=== PATIENT | female | born 1945 | race Two or more races ===

== ENCOUNTER 2019-06-27 07:55 | Emergency (ER) | payer OTHER ==
[~2019-06-27] VITALS: Ht 152.4 cm; Wt 73.0 kg
[~2019-06-27 07:55] MED LIST: FURO40SO5 PO; LISI-608 PO; METO25TA20 PO
[2019-06-27 08:05] VITALS: BP 216/111
--- NOTE | 2019-06-27 09:22 | NUR ---
PATIENT SEEN AND EXAMIEND BY DR HOLT. APPLIED SLING ON RIGHT FOREARM/WRIST, PROVIDED PATIENT WITH SLING. DISCHARGE INSTRUCTIONS AND EDUCATION PROVIDED. CLEARED TO DC BY DR HOLT. PATIENT INSTRUCTED TO HAVE FOLLOW-UP APPOINTMENT WITH PCP AND VERBALIZED UNDERSTANDING. DISCHARGE INSTRUCTIONS, RADIOLOGY RESULT, WRITTEN PRESCRIPTIONS GIVEN TO PATIENT. LEFT UNIT AMBULATORY IN STABLE CONDITION. NO ACUTE DISTRESS. NO NEW SKIN BREAKDOWN. MD AWARE
== END 2019-06-27 09:22 | disposition home or self-care (01) ==
LOC: ER 07:55
DX: S63.591A Other specified sprain of right wrist, initial encounter (principal); I10 Essential (primary) hypertension; E11.9 Type 2 diabetes mellitus without complications; Z90.49 Acquired absence of other specified parts of digestive tract; W18.39XA Other fall on same level, initial encounter; Y93.89 Activity, other specified; Y92.89 Other specified places as the place of occurrence of the external cause; Y99.8 Other external cause status
CPT/HCPCS: 73110

== ENCOUNTER 2020-08-24 19:37 | Emergency (ER) | payer OTHER ==
[~2020-08-24] VITALS: Ht 162.6 cm; Wt 70.3 kg
[2020-08-24 20:25] VITALS: BP 201/90
[2020-08-24] MEDS ORDERED: IBUPROFEN 600 MG TABLET ONE (20:52)
[2020-08-24] MEDS: IBUPROFEN 600 MG TABLET PO ONE (21:00)
--- NOTE | 2020-08-24 21:06 | NUR ---
RADIOLOGY AT BEDSIDE FOR XR
--- NOTE | 2020-08-24 21:43 | NUR ---
FAITH ANDERSON [phone]
--- NOTE | 2020-08-24 21:46 | NUR ---
CALLED JUSTIN TWICE, BUT BOTH WENT STRAIGHT TO VOICEMAIL, LEFT A VOICEMAIL.
--- NOTE | 2020-08-24 22:07 | NUR ---
Patient discharged to home in stable condition. Written and verbal after care instructions given. Patient verbalizes understanding of instruction.
--- NOTE | 2020-08-24 22:07 | NUR ---
RIGHT SHOULDER SLING IMPLEMENTED.
--- NOTE | 2020-08-24 22:15 | NUR ---
CALLED KAREN Sin, ANOTHER GRANDSON, . HE IS COMING TO COMMAND CENTER OFFICER THE PATIENT.
== END 2020-08-24 22:17 | disposition home or self-care (01) ==
LOC: ER 19:47
DX: S40.011A Contusion of right shoulder, initial encounter (principal); I10 Essential (primary) hypertension; E11.9 Type 2 diabetes mellitus without complications; Z90.49 Acquired absence of other specified parts of digestive tract; Z79.899 Other long term (current) drug therapy; W18.39XA Other fall on same level, initial encounter; Y93.01 Activity, walking, marching and hiking; Y92.89 Other specified places as the place of occurrence of the external cause; Y99.8 Other external cause status
CPT/HCPCS: 73030-TC

== ENCOUNTER 2021-10-18 13:19 | Emergency (ER) | payer OTHER ==
[~2021-10-18] VITALS: Ht 157.5 cm; Wt 655.0 kg
[~2021-10-18 13:19] MED LIST changes: -LISI-608 PO; +LISI5TAB24 PO
--- NOTE | 2021-10-18 13:19 | NUR ---
[id number] HOME, L SIDE HEAD LACERATION S/P MISSED A STEP GOING DOWN STAIRS. PT IS A&OX4 AND STABLE. PT SENT TO ROOM 2 WILL CONTINUE TO MONITOR.
--- NOTE | 2021-10-18 13:22 | NUR ---
DR MARIE AT BEDSIDE
[2021-10-18] MEDS ORDERED: LIDOCAINE /MPF 1% VIAL 5 ML VIAL ONE (13:35)
[2021-10-18] MEDS ORDERED: TDAP [DIPH/PERTUSSIS/TET] 0.5 ML VIAL IM ONE ×2 (14:00→14:32)
[2021-10-18] MEDS ORDERED: LIDOCAINE 1% INJ 50 ML MDV IJ ONE ×2 (14:00→14:31)
[2021-10-18] MEDS ORDERED: BACITRACIN ZINC OINT PACKET 1 EA PACKET TP ONE ×2 (14:00→14:32)
[2021-10-18] MEDS ORDERED: LIDOCAINE HCL/MPF 1% 30 ML VIAL IJ ONE (14:26)
[2021-10-18] MEDS ORDERED: HYDROCODONE/APAP 5/325MG TABLET ONE (14:46)
[2021-10-18] MEDS ORDERED: HYDROCODONE/APAP 5/325MG TABLET PO ONE (15:00)
[2021-10-18] MEDS ORDERED: ACET-2605 PO (15:21)
[2021-10-18] MEDS ORDERED: CEPH500T PO (15:21)
--- NOTE | 2021-10-18 15:35 | NUR ---
Patient discharged to home in stable condition. Written and verbal after care instructions given. Patient verbalizes understanding of instruction.
[2021-10-18 15:52] VITALS: BP 168/94
== END 2021-10-18 15:35 | disposition home or self-care (01) ==
LOC: ER 14:06
DX: S01.01XA Laceration without foreign body of scalp, initial encounter (principal); I10 Essential (primary) hypertension; E11.9 Type 2 diabetes mellitus without complications; Z90.49 Acquired absence of other specified parts of digestive tract; Z79.899 Other long term (current) drug therapy; W10.8XXA Fall (on) (from) other stairs and steps, initial encounter; Y93.01 Activity, walking, marching and hiking; Y92.89 Other specified places as the place of occurrence of the external cause; Y99.8 Other external cause status
CPT/HCPCS: 12004; 70450; 90471; 90715; 99284; A6403 ×2; J3490 ×3

== ENCOUNTER 2021-10-20 15:32 | Inpatient (IN) | payer OTHER ==
[~2021-10-20] VITALS: Ht 157.5 cm; Wt 60.8 kg
[~2021-10-20 15:32] MED LIST changes: +ACET-2605 PO; +CEPH500T PO
--- NOTE | 2021-10-20 16:11 | NUR ---
THE PATIENT PRESENTS TO ED FOR WOUND CHECK S/P HEAD INJURY/ LAC REPAIR 2 DAYS AGO. DENIES PAIN. WILL CONTINUE TO MONITOR THE PATIENT.
--- NOTE | 2021-10-20 16:20 | NUR ---
DR MARIE AT THE BEDSIDE
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
--- NOTE | 2021-10-20 17:49 | NUR ---
JUSTIN ([facility]) [phone]
[2021-10-20 18:18] LABS: BASOPHILS % (AUTO) 0.3 % (0.0-2.0); EOSINOPHILS % (AUTO) 1.5 % (0.0-6.0); HEMATOCRIT 40 % (33-45); HEMOGLOBIN 13.3 g/dL (11.5-14.8); LYMPHOCYTES % (AUTO) 32.9 % (20.0-44.0); MEAN CORPUSCULAR HGB CONC 33 g/dl (31.0-36.0); MEAN CORPUSCULAR VOLUME 90 fL (82-100); MONOCYTES # (AUTO) 0.5 K/uL (0.1-1.30); MONOCYTES % (AUTO) 5.2 % (2.0-12.0); NEUTROPHILS # (AUTO) 5.4 K/uL (1.8-8.9); NEUTROPHILS % (AUTO) 60.1 % (43.0-81.0); PLATELET COUNT (AUTO) 167 K/uL (150-450); RED BLOOD CELL COUNT(AUTO) 4.49 MIL/uL (4.0-5.2)
[2021-10-20 18:24] LABS: CALCIUM, SERUM 9.1 mg/dL (8.5-10.1); CARBON DIOXIDE 28 mmol/L (21-32); CHLORIDE 106 mmol/L (98-107); CREATININE 0.9 mg/dL (0.6-1.3); GLUCOSE 113 mg/dL (74-106); SODIUM SERUM 142 mmol/L (136-145); UREA NITROGEN, BLOOD 21 mg/dL (7-18)
[2021-10-20 18:42] LABS: ALANINE AMINOTRANSFERASE 18 U/L (12-78); ALBUMIN 3.8 g/dL (3.4-5.0); ALKALINE PHOSPHATASE 95 U/L (46-116); ASPARTATE AMINOTRANSFERASE 16 U/L (15-37); BILIRUBIN,DIRECT 0.1 mg/dL (0.0-0.2); BILIRUBIN,TOTAL 0.5 mg/dL (0.2-1.0); TOTAL PROTEIN, SERUM 8.1 g/dL (6.4-8.2)
[2021-10-20 18:43] LABS: ACETAMINOPHEN 0 ug/ml (10-30); ALCOHOL, BLOOD < 3 mg/dL (0-0)
[2021-10-20] MEDS ORDERED: CEPHALEXIN MONOHYDRATE 500 MG CAPSULE PO ONE ×2 (19:00→19:14)
--- NOTE | 2021-10-20 19:00 | NUR ---
CALLED TO FOLLOW UP ON CASE OF [employer] DISPATCH. NO UNIT ASSIGNED. WILL SEND A UNIT.
--- NOTE | 2021-10-20 20:20 | NUR ---
[employer] AT BEDSIDE
--- NOTE | 2021-10-20 20:25 | NUR ---
JAK OFFICER TALKED TO WILTON OTT.
--- NOTE | 2021-10-20 20:27 | NUR ---
JAK MIRAMONTESHAYAKASHWINI. INCIDENT NUMBER [id number]
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
--- NOTE | 2021-10-21 08:11 | NUR ---
THE PATIENT IS RECEIVED IN ER BED #11. ALERT AND ORIENTED X3. DENIES PAIN. IN ROOM AIR AND DENIES SOB. RESPIRATION REGULAR AND UNLABORED. WILL CONTINUE TO MONITOR THE PATIENT.
--- NOTE | 2021-10-21 08:15 | NUR ---
THE PATIENT IS HAVING BREAKFAST. TOLERATES PROVIDED MEAL WELL. WILL CONTINUE TO MONITOR THE PATIENT.
--- NOTE | 2021-10-21 09:21 | NUR ---
SHIPPER/RECEIVER DENTAL CLAIMS PROCESSOR AT THE BEDSIDE
--- NOTE | 2021-10-21 09:40 | NUR ---
COVID SWAB DONE AND SENT TO LAB
[2021-10-21] MEDS ORDERED: LISI-768 PO (09:41)
[2021-10-21] MEDS ORDERED: METO25TA20 PO (09:41)
--- NOTE | 2021-10-21 10:12 | NUR ---
MENDEL [facility] TEL [phone]
--- NOTE | 2021-10-21 10:39 | NUR ---
SANDY APS Report: SANDY filed for APS report through [facility] for self-neglect. (Intake ID [id number])
--- NOTE | 2021-10-21 11:12 | NUR ---
CALLED FOR GPS BED.
[2021-10-21] MEDS ORDERED: ACETAMINOPHEN ES 500 MG TABLET PO PRN (13:00)
--- NOTE | 2021-10-21 13:50 | NUR ---
REPORT GIVEN TO NURSE BRUNNER
[2021-10-21] MEDS ORDERED: METOPROLOL TARTRATE 25 MG TABLET ONE ×2 (14:01→14:05)
[2021-10-21] MEDS: METOPROLOL TARTRATE 25 MG TABLET PO SCH ×2 (14:10→22:00)
--- NOTE | 2021-10-21 14:28 | NUR ---
THE PATIENT IS TRANSFERED TO [facility] IN STABLE CONDITION AND PER POLICY.
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
[2021-10-21] MEDS ORDERED: MAG HYDROX/AL HYDROX/SIMETH 30 ML UDC PO PRN (15:00)
[2021-10-21] MEDS ORDERED: BLOOD SUGAR DIAGNOSTIC 1 EACH STRIP IN ONE (15:00)
[2021-10-21] MEDS ORDERED: ACETAMINOPHEN 325 MG TABLET PO PRN (15:00)
[2021-10-21] MEDS ORDERED: MAGNESIUM HYDROXIDE 30 ML UDC PO PRN (15:00)
[2021-10-21] MEDS ORDERED: LORAZEPAM 0.5 MG TABLET PO PRN (15:00)
[2021-10-21] MEDS ORDERED: TEMAZEPAM 7.5 MG CAPSULE PO PRN (15:00)
[2021-10-21] MEDS: LISINOPRIL (5MG) 5 MG TABLET PO SCH (15:04)
--- NOTE | 2021-10-21 15:14 | NUR ---
SANDY Initial Discharge Note: Patient currently resides at [address] [place] [address]; ([phone]). Patient's son Juan Carlos lives in the same building. Patient would want to return back home upon dc. SANDY will work with the MD, Treatment team and family to coordinate appropriate discharge.
[2021-10-21 16:00] VITALS: BP 145/69
[2021-10-21 20:59] VITALS: BP 101/73
[2021-10-21 21:00] VITALS: BP 136/72
[2021-10-22 06:47] LABS: BASOPHILS % (AUTO) 0.7 % (0.0-2.0); EOSINOPHILS % (AUTO) 4.3 % (0.0-6.0); HEMATOCRIT 39 % (33-45); HEMOGLOBIN 12.8 g/dL (11.5-14.8); LYMPHOCYTES # (AUTO) 1.8 K/uL (0.8-4.8); LYMPHOCYTES % (AUTO) 27.6 % (20.0-44.0); MEAN CORPUSCULAR HGB CONC 33 g/dl (31.0-36.0); MEAN CORPUSCULAR VOLUME 90 fL (82-100); MONOCYTES # (AUTO) 0.5 K/uL (0.1-1.30); MONOCYTES % (AUTO) 7.8 % (2.0-12.0); NEUTROPHILS # (AUTO) 3.9 K/uL (1.8-8.9); NEUTROPHILS % (AUTO) 59.6 % (43.0-81.0); PLATELET COUNT (AUTO) 164 K/uL (150-450); RED BLOOD CELL COUNT(AUTO) 4.35 MIL/uL (4.0-5.2); WHITE BLOOD COUNT (AUTO) 6.5 K/uL (4.3-11.0)
[2021-10-22 07:10] LABS: CHOLESTEROL 167 mg/dL (<200); HDL CHOLESTEROL 63 mg/dL (40-60); LDL 89 mg/dL (0-99); TRIGLYCERIDES 69 mg/dL (30-150)
[2021-10-22 07:13] LABS: CALCIUM, SERUM 8.9 mg/dL (8.5-10.1); CREATININE 0.9 mg/dL (0.6-1.3)
[2021-10-22 08:00] VITALS: BP 175/94
[2021-10-22] MEDS: LISINOPRIL (5MG) 5 MG TABLET PO SCH (08:33)
[2021-10-22] MEDS: METOPROLOL TARTRATE 25 MG TABLET PO SCH ×2 (08:33→20:43)
--- NOTE | 2021-10-22 09:34 | NUR ---
WOUND CARE CONSULT: PT PRESENTS AMBULATORY AND CONTINENT WITH CLOSED LACERATION TO SCALP AND DISCOLORATION TO FACE, PRESENT ON ADMISSION. NO DRAINAGE NOTED FROM STAPLED SCALP LACERATION. WILL SEE PRN.
--- NOTE | 2021-10-22 11:01 | NUR ---
SANDY Family Contact: SW spoke with patient's son Juan Carlos ([phone]) and discussed treatment and discharge plan. He shared that pt lives with roommates. He shared that pt would go back home upon dc. He reported that he assumes that pt fell when walking the dog.
[2021-10-22 16:07] VITALS: BP 151/91
[2021-10-22 20:00] VITALS: BP 196/77
[2021-10-22 20:36] VITALS: BP 164/72
[2021-10-22 21:02] VITALS: BP 179/75
[2021-10-22] MEDS: risperiDONE 0.25 MG TABLET PO SCH (22:00)
[2021-10-23 08:00] VITALS: BP 178/80
--- NOTE | 2021-10-23 08:19 | NUR ---
UR Note: AUTHORIZATION# [id number] OBTAINED FROM VINNY COVINGTON AT [phone]. MENDEL PIT SUPERVISOR. GAVE VERBAL AUTH INITIALLY TO PIPER REMY AND HAS SPOKE TO [facility] NOTIFYING THEM OF ADMISSION. MENDEL WILL BE THE ONE FOLLOWING THIS CASE; SAME NUMBER LISTED ABOVE AND CLINICAL CAN BE FAXED TO [phone]. AUTH STAYS OPEN UNTIL PT IS DISCHARGED. PER INTAKE.
--- NOTE | 2021-10-23 08:25 | NUR ---
UR Note: AUTHORIZATION# [id number] SW faxed daily clinicals to [facility] ([phone]) (F:[phone]).
[2021-10-23] MEDS: LISINOPRIL (5MG) 5 MG TABLET PO SCH (08:38)
[2021-10-23] MEDS: METOPROLOL TARTRATE 25 MG TABLET PO SCH (08:38)
--- NOTE | 2021-10-23 08:46 | NUR ---
UR Note: AUTHORIZATION# [id number]. SANDY left a message to [facility] ([phone]) (F:[phone]) and stated that because of the holidays this caption writer will not be able to send clinicals 10/24-10/27. ASNDY will notify intake department.
[2021-10-23] MEDS: risperiDONE 0.25 MG TABLET PO SCH ×2 (09:32→21:16)
--- NOTE | 2021-10-23 13:39 | NUR ---
SANDY Coordination of Care: Patient will follow up with (Clothing Presser) Dr. Paulo Luciano located at [address] [place] [address]; ([phone]) on November 04 at 9AM.
[2021-10-23 16:00] VITALS: BP 169/75
[2021-10-23] MEDS: CARVEDILOL 12.5 MG TABLET PO SCH (16:22)
[2021-10-23 20:00] VITALS: BP 134/65
[2021-10-24 08:00] VITALS: BP 189/72
[2021-10-24] MEDS: CARVEDILOL 12.5 MG TABLET PO SCH ×2 (08:21→16:12)
[2021-10-24] MEDS: LISINOPRIL (20MG) 20 MG TABLET PO SCH (08:46)
[2021-10-24] MEDS ORDERED: LISINOPRIL (5MG) 5 MG TABLET PO SCH (09:00)
[2021-10-24 09:50] VITALS: BP 151/57
[2021-10-24] MEDS: risperiDONE 0.25 MG TABLET PO SCH (10:06)
[2021-10-24 16:00] VITALS: BP 150/70
[2021-10-24] MEDS: AMLODIPINE BESYLATE 5 MG TABLET PO SCH (16:12)
[2021-10-24] MEDS: risperiDONE 1 MG TABLET PO SCH (18:57)
[2021-10-24 19:56] VITALS: BP 139/65
[2021-10-25] MEDS: risperiDONE 1 MG TABLET PO SCH ×2 (06:14→17:34)
[2021-10-25 08:00] VITALS: BP 151/78
[2021-10-25] MEDS: AMLODIPINE BESYLATE 5 MG TABLET PO SCH ×2 (08:45→17:35)
[2021-10-25] MEDS: LISINOPRIL (20MG) 20 MG TABLET PO SCH (08:45)
[2021-10-25] MEDS: CARVEDILOL 12.5 MG TABLET PO SCH ×2 (08:45→17:35)
--- NOTE | 2021-10-25 12:33 | NUR ---
UR Note: AUTHORIZATION# [id number]. SANDY faxed clinicals to [facility] case filler ([phone]) ([phone]). SANDY faxed daily clinical.
[2021-10-25 16:00] VITALS: BP 158/66
[2021-10-25 20:21] VITALS: BP 133/71
[2021-10-25 22:30] VITALS: BP 128/73
[2021-10-25 22:40] VITALS: BP 126/75
[2021-10-26] MEDS: risperiDONE 1 MG TABLET PO SCH ×2 (06:09→18:12)
[2021-10-26 08:00] VITALS: BP_SYST 140; BP_SYST 163; BP_DIAS 66; BP_DIAS 76
[2021-10-26] MEDS: LISINOPRIL (20MG) 20 MG TABLET PO SCH (08:02)
[2021-10-26] MEDS: AMLODIPINE BESYLATE 5 MG TABLET PO SCH ×2 (08:02→16:14)
[2021-10-26] MEDS: CARVEDILOL 12.5 MG TABLET PO SCH ×2 (08:02→16:14)
[2021-10-26 09:30] VITALS: BP 125/53
[2021-10-26 16:00] VITALS: BP 140/66
--- NOTE | 2021-10-26 19:30 | NUR ---
GPS RN NOTE, RECEIVED PATIENT AWAKE AND IN BED, NO S/S OR COMPLAINTS OF PAIN AT THIS TIME. PATIENT IS DISPLAYING NO S/S OF APPARENT DISTRESS AT THIS TIME. PATIENT BREATHING IS UNLABORED WITH EQUAL RISE AND FALL OF THE CHEST. PATIENT IS ALERT AND ORIENTED X 2 ON ROOM AIR WITH A SPO2 95%. PATIENT IS COMPLIANT WITH MEDICATIONS, ANXIOUS AT TIMES, PARANOID, POLITE, COOPERATIVE, AND NEEDS REDIRECTION. PATIENT DENIES SUICIDAL AND HOMICIDAL IDEATIONS AT THIS TIME. PATIENT ASSISTED WITH TURNING AND REPOSITIONING Q2HR AND PRN FOR COMFORT AND CIRCULATION. PATIENT HAS NO NEEDS AT THIS TIME. PATIENT EDUCATED ON THE USE OF THE CALL GREEN. PATIENT BED SIDE RAILS UP X 2 FOR SAFETY. PATIENT BED IS LOCKED, LOW, WITH BED ALARM ON. WILL CONTINUE TO MONITOR THIS PATIENT Q15 MINUTES WITH THE HELP OF STAFF TO MAINTAIN SAFETY.
[2021-10-26 20:03] VITALS: BP 148/63
[2021-10-26 20:11] VITALS: BP 148/63
[2021-10-27] MEDS: risperiDONE 1 MG TABLET PO SCH ×2 (05:36→17:08)
[2021-10-27 08:00] VITALS: BP 148/65
[2021-10-27] MEDS: AMLODIPINE BESYLATE 5 MG TABLET PO SCH ×2 (08:12→17:06)
[2021-10-27] MEDS: LISINOPRIL (20MG) 20 MG TABLET PO SCH (08:13)
[2021-10-27] MEDS: CARVEDILOL 12.5 MG TABLET PO SCH ×2 (08:13→17:07)
[2021-10-27 16:00] VITALS: BP 144/60
--- NOTE | 2021-10-27 19:30 | NUR ---
GPS RN NOTE, RECEIVED PATIENT AWAKE AND IN BED, NO S/S OR COMPLAINTS OF PAIN AT THIS TIME. PATIENT IS DISPLAYING NO S/S OF APPARENT DISTRESS AT THIS TIME. PATIENT BREATHING IS UNLABORED WITH EQUAL RISE AND FALL OF THE CHEST. PATIENT IS ALERT AND ORIENTED X 2 ON ROOM AIR WITH A SPO2 98%. PATIENT IS COMPLIANT WITH MEDICATIONS, ANXIOUS AT TIMES, PARANOID, POLITE, COOPERATIVE, AND NEEDS REDIRECTION. PATIENT DENIES SUICIDAL AND HOMICIDAL IDEATIONS AT THIS TIME. PATIENT ASSISTED WITH TURNING AND REPOSITIONING Q2HR AND PRN FOR COMFORT AND CIRCULATION. PATIENT HAS NO NEEDS AT THIS TIME. PATIENT EDUCATED ON THE USE OF THE CALL GREEN. PATIENT BED SIDE RAILS UP X 2 FOR SAFETY. PATIENT BED IS LOCKED, LOW, WITH BED ALARM ON. WILL CONTINUE TO MONITOR THIS PATIENT Q15 MINUTES WITH THE HELP OF STAFF TO MAINTAIN SAFETY.
--- NOTE | 2021-10-27 19:51 | NUR ---
GPS RN NOTE, PATIENT REFUSED TO HAVE SKIN ASSESSMENT AND WEEKLY PHOTO'S TAKEN PER POLICY. OFFERED THREE TIMES AND STILL PATIENT REFUSED STATING, " NO I DID THAT WHEN I WAS ADMITTED I'M NOT DOING THAT AGAIN ". ECAUDATED PATIENT ABOUT HOSPITAL POLICY. WILL CONTINUE TO MONITOR THIS PATIENT WITH THE HELP OF STAFF.
[2021-10-27 19:55] VITALS: BP 155/75
[2021-10-28] MEDS: risperiDONE 1 MG TABLET PO SCH (05:34)
[2021-10-28 08:00] VITALS: BP 119/75
[2021-10-28] MEDS: CARVEDILOL 12.5 MG TABLET PO SCH ×2 (09:00→17:07)
--- NOTE | 2021-10-28 09:21 | NUR ---
UR Note: AUTHORIZATION# [id number]. SANDY faxed clinicals to [facility] transplant case manager ([phone]) (F:[phone]). SANDY faxed daily clinical.
[2021-10-28] MEDS: AMLODIPINE BESYLATE 5 MG TABLET PO SCH ×2 (10:24→17:03)
[2021-10-28] MEDS: LISINOPRIL (20MG) 20 MG TABLET PO SCH (10:24)
[2021-10-28 16:00] VITALS: BP 151/64
[2021-10-28] MEDS: risperiDONE 0.25 MG TABLET PO SCH (17:08)
[2021-10-28 19:48] VITALS: BP 102/58
[2021-10-29] MEDS: risperiDONE 0.25 MG TABLET PO SCH ×2 (04:17→17:44)
[2021-10-29 08:00] VITALS: BP 145/59
[2021-10-29] MEDS: CARVEDILOL 12.5 MG TABLET PO SCH ×2 (08:33→17:44)
[2021-10-29] MEDS: LISINOPRIL (20MG) 20 MG TABLET PO SCH (08:34)
[2021-10-29] MEDS: AMLODIPINE BESYLATE 5 MG TABLET PO SCH ×2 (08:34→17:44)
--- NOTE | 2021-10-29 09:15 | NUR ---
UR Note: AUTHORIZATION# [id number]. SANDY faxed clinicals to [facility] medical case worker ([phone]) (F:[phone]). SANDY faxed daily clinical.
--- NOTE | 2021-10-29 10:11 | NUR ---
Court Hearing: Patient's court hearing for [id number] hear was today and it was upheld for GD.
[2021-10-29 16:02] VITALS: BP 143/62
[2021-10-29 20:00] VITALS: BP 144/63
[2021-10-30] MEDS: risperiDONE 0.25 MG TABLET PO SCH ×2 (05:55→17:00)
[2021-10-30 08:00] VITALS: BP 129/69
[2021-10-30] MEDS: LISINOPRIL (20MG) 20 MG TABLET PO SCH (08:16)
[2021-10-30] MEDS: CARVEDILOL 12.5 MG TABLET PO SCH ×2 (08:16→17:00)
[2021-10-30] MEDS: AMLODIPINE BESYLATE 5 MG TABLET PO SCH ×2 (08:16→17:00)
--- NOTE | 2021-10-30 08:35 | NUR ---
UR Note: AUTHORIZATION# [id number]. SANDY faxed clinicals to [facility] briefcase sewer ([phone]) (F:[phone]). SANDY faxed daily clinical.
--- NOTE | 2021-10-30 08:35 | NUR ---
SANDY Family Contact: SANDY contacted patient's son Juan Carlos ([phone]) of discharge for 12/ back home.
--- NOTE | 2021-10-30 14:30 | NUR ---
SW Note: SW attempted to conduct individual therapy. Pt appeared to be uncooperative at this time and did not want to conduct therapy.
[2021-10-30 16:00] VITALS: BP_SYST 122; BP_DIAS 56; BP_DIAS 66
--- NOTE | 2021-10-30 18:00 | NUR ---
RN-NOTES PATIENT IN THE DAY ROOM AWAKE,ALERT X3 INTERACTING WITH CO-PEERS. NO DRAINAGE OR S/S OF INFECTION NOTED ON HEAD WOUND WITH JOHN ,PATIENT DENIES ANY PAIN OR DISCOMFORT ON THE SITE. WILL ENDORSE TO INCOMING NURSE FOR CONTINUITY OF CARE.
[2021-10-30 20:00] VITALS: BP 166/71
[2021-10-30 21:00] VITALS: BP 144/65
[2021-10-31] MEDS: risperiDONE 0.25 MG TABLET PO SCH (05:03)
[2021-10-31 08:00] VITALS: BP 153/69
--- NOTE | 2021-10-31 08:18 | NUR ---
SANDY Discharge Note: Patient will be discharged back home located at [address], [place] [address]; [phone]. Please arrange taxi at 1PM. Juan Carlos ba ([phone]) is aware of discharge. Patient appears to be alert and oriented x2. Patient is happy to be going back home. Patient denies suicidal or homicidal ideation. Patient denies visual/auditory hallucinations. Patient will follow up with (Customer Management Specialist) Dr. Paulo Luciano located at [address] [facility] [address] [place] [address]; ([phone]) on November 04 at 9AM who will monitor and provide psychotropic medications. Pt presents with euthymic mood and congruent affect. Addendum: 10/31/21 at 1027 by SANDY CROWE Taxi Voucher ([phone]) Vouch #[id number]
[2021-10-31 08:24] VITALS: BP 153/69
[2021-10-31] MEDS: AMLODIPINE BESYLATE 5 MG TABLET PO SCH (08:24)
[2021-10-31] MEDS: LISINOPRIL (20MG) 20 MG TABLET PO SCH (08:24)
[2021-10-31] MEDS: CARVEDILOL 12.5 MG TABLET PO SCH (08:24)
--- NOTE | 2021-10-31 08:55 | NUR ---
UR Note: AUTHORIZATION# [id number]. SANDY faxed clinicals to [facility] caser shoe parts ([phone]) (F:[phone]). SANDY faxed daily clinical. SANDY sent clinical discharge notes included with H & P notes, medication list, and progress notes.
--- NOTE | 2021-10-31 10:09 | NUR ---
SANDY Family Contact: SANDY gave pt's son Juan Carlos ([phone]) resources for assisted living and Independent living if needed in the future.
--- NOTE | 2021-10-31 13:44 | NUR ---
GPS AIR VALUE TESTER NOTE: PATIENT DISCHARGE HOME VIA TAXI .BRENDAN ANDERSON IS AWARE , PATIENT IN STABLE CONDITION, NO S/S DISTRESS NOTED PATIENT SHOWERED,VSS,DENIES SI/HI AVH, COMPLIANT WITH MEDICATIONS AND TX, COOPERATIVE.EXIT CARE DONE PRINTED ,SIGN AND GIVEN TO PATIENT ,SKIN ASSESSED PICTURE PLACED IN THE CHART, PER MAINTAINER OPERATOR JOHN REMOVED.DR MONDRAGON DC HOLD. PATIENT WAS EXPLAIN MEDICATION MGMT , RX GIVEN. FOLLOW UP APPT WAS EXPLAIN.
== END 2021-10-31 13:00 | disposition home or self-care (01) | DRG 885 ==
LOC: ER 15:44 → GPS 10-21 13:43
PROVIDERS: ADMIT Psychiatry & Neurology Psychiatry; ATTEND Registered Nurse
DX: F29 Unspecified psychosis not due to a substance or known physiological condition (principal); F03.91 Unspecified dementia, unspecified severity, with behavioral disturbance; F41.9 Anxiety disorder, unspecified; I10 Essential (primary) hypertension; Z90.49 Acquired absence of other specified parts of digestive tract; E11.51 Type 2 diabetes mellitus with diabetic peripheral angiopathy without gangrene; Z79.899 Other long term (current) drug therapy; W19.XXXD Unspecified fall, subsequent encounter; S01.01XD Laceration without foreign body of scalp, subsequent encounter; Z82.49 Family history of ischemic heart disease and other diseases of the circulatory system; Z83.3 Family history of diabetes mellitus; Z73.6 Limitation of activities due to disability
CPT/HCPCS: 36415; 80048-TC; 80061-TC; 80076-TC; 85025-TC; 97116-TC; 97530-TC; C9803; G0480